=== PATIENT | male | born 1965 | race Two or more races ===

== ENCOUNTER → 2021-01-11 | Outpatient (CLI) | payer OTHER | END | disposition home or self-care (01) | LOC: EDBD → PPH VACUNA | DX: Z23 Encounter for immunization (principal) ==

== ENCOUNTER 2021-02-01 14:08 | Outpatient (CLI) | payer OTHER | END 2021-02-01 16:03 | disposition home or self-care (01) | LOC: OFIC 805 14:08 | PROVIDERS: ATTEND Otolaryngology Otology & Neurotology | DX: H60.8X2 Other otitis externa, left ear (principal); H61.812 Exostosis of left external canal ==

== ENCOUNTER 2021-11-12 11:37 | Outpatient (CLI) | payer OTHER | END 2021-11-12 15:00 | disposition home or self-care (01) | LOC: LAB 11:37 | DX: Z03.818 Encounter for observation for suspected exposure to other biological agents ruled out (principal) ==

== ENCOUNTER 2021-11-24 08:00 | Outpatient (CLI) | payer OTHER | END 2021-11-24 08:30 | disposition home or self-care (01) | LOC: PPH VACUNA 08:00 | PROVIDERS: ATTEND Emergency Medicine Pediatric Emergency Medicine | DX: Z23 Encounter for immunization (principal) ==